=== PATIENT | male | born 1950 | race Caucasian/White ===

== ENCOUNTER 2017-01-09 20:47 | Emergency (ER) | payer MEDICARE | END 2017-01-09 21:20 | disposition home or self-care (01) | LOC: ER 20:47 | DX: J44.9 Chronic obstructive pulmonary disease, unspecified (principal); J18.9 Pneumonia, unspecified organism; J98.01 Acute bronchospasm; I10 Essential (primary) hypertension; I25.10 Atherosclerotic heart disease of native coronary artery without angina pectoris; Z87.891 Personal history of nicotine dependence; Z95.1 Presence of aortocoronary bypass graft; Z79.82 Long term (current) use of aspirin ==

== ENCOUNTER 2017-01-16 04:20 | Emergency (ER) | payer MEDICARE | END 2017-01-16 07:11 | disposition other institution (70) | LOC: ER 04:20 | DX: I20.0 Unstable angina (principal); I10 Essential (primary) hypertension; Z87.891 Personal history of nicotine dependence; Z95.1 Presence of aortocoronary bypass graft; Z79.82 Long term (current) use of aspirin; Z79.899 Other long term (current) drug therapy | CPT/HCPCS: 36415; 96365; J1644 ==